=== PATIENT | female | born 1940 | race Caucasian/White ===

== ENCOUNTER 2024-03-27 13:49 | Inpatient (IN) | payer MEDICARE, SELFPAY ==
[2024-03-27] VITALS (9 sets, daily range): BP systolic 104–128; BP diastolic 60–71; PULSE 95–122; RESP 17–22; TEMP 36.2–39.8; O2SAT 93–98; BMI 19.4
--- NOTE | ~2024-03-27 | CT_ITS ---
EXAMINATION: CT HEAD WITHOUT CONTRAST CLINICAL INFORMATION: Dizziness. COMPARISON: None available. TECHNIQUE: Contiguous axial imaging was performed from the skull base to vertex without intravenous administration of contrast. This CT examination was performed using dose optimization techniques as appropriate, variously including the following: *Automated exposure control *Adjustment of mA and/or kV according to patient size (this includes techniques or standardized protocols for targeted exams where dose is matched to indication/reason for exam; i.e. extremities or head) *Use of iterative reconstruction technique DLP: 912 mGy-cm FINDINGS: There is a small extra-axial collection along the right frontal and right parietal lobes. The collection measures up to 7 mm in the frontal region and up to 7 mm in the parietal region. There is minimal mass effect on the subjacent brain. There is no midline shift. There is no evidence of acute/subacute cerebral or cerebellar infarction. There is mild microvascular ischemic change. There is mild global cerebral volume loss. The ventricles are normal in size. The calvarium is intact. The visualized paranasal sinuses and mastoid air cells are clear. CT/CT head/brain wo IV con IMPRESSION: There is a small extra-axial collection measuring up to 7 mm in thickness along the right frontal and parietal regions. The collection is isodense to brain parenchyma. There is minimal mass effect on the subjacent brain. There is no midline shift. Mild microvascular ischemic change. Mild global cerebral volume loss. This critical result was discussed with Dr Haynes at 3:42 PM on 03/27/2024 and it was ascertained that the content and urgency of the report was understood at the time of direct communication. Electronically signed by: Kulwant Carrillo DO 03/27/2024 03:43 PM KIN
--- NOTE | ~2024-03-27 | XR_ITS ---
EXAMINATION: XR CHEST CLINICAL INFORMATION: fever COMPARISON: None available. TECHNIQUE: Frontal view of the chest was obtained. FINDINGS: The heart is normal in size. There is calcific atherosclerotic disease of the aorta. There is prominence of the right hilum, which may represent vasculature, however, an underlying right hilar lesion cannot be excluded. The lungs are otherwise clear. There is no pleural effusion or pneumothorax. No acute osseous. XR/XR chest 1V IMPRESSION: There is prominence of the right hilum, which may represent vasculature, however, an underlying right hilar lesion cannot be excluded. The lungs are otherwise clear. Electronically signed by: Kulwant Carrillo DO 03/27/2024 04:02 PM EST
--- NOTE | 2024-03-27 14:04 | ECG_ITS ---
Test Reason : TACHY Blood Pressure : / mmHG Vent. Rate : 122 BPM Atrial Rate : 122 BPM P-R Int : 174 ms QRS Dur : 068 ms QT Int : 312 ms P-R-T Axes : 034 014 056 degrees QTc Int : 444 ms Sinus tachycardia Possible Left atrial enlargement Possible Inferior infarct , age undetermined Possible Anterior infarct , age undetermined Nonspecific ST and T wave abnormality Abnormal ECG No previous ECGs available Referred By: Generic ED Physician Electronically Signed By:SUZI PAUL
--- NOTE | 2024-03-27 14:21 | ED.DIZZY ---
HPI - Dizziness General Chief Complaint: Dizziness Stated Complaint: DIZZY AMS Time Seen by Provider: 03/27/24 14:07 Source: patient and EMS Mode of arrival: EMS Limitations: no limitations History of Present Illness ED Provider: DR. Haynes HPI Narrative: 83-year-old female rhythm by ambulance for evaluation dizziness (room spinning ) patient's symptoms started since early this morning, patient lives independently highly active dance couple times a week, patient's symptoms started since 09:00, no headache, no weakness, no numbness, no CP, no SOB, no cough, no abdominal pain, no dysuria, no subjective fever. Patient complaining of frequency urination and chills for the past week. In the emergency department patient found to be febrile 103, with normal neuro exam pain. Related Data Allergies Allergy/AdvReac Type Severity Reaction Status Date / Time No Known Allergies Allergy Verified 03/27/24 14:03 Review of Systems Review of Systems: all other systems are reviewed and are negative Constitutional: Reports as per HPI and Reports no additional constitutional complaints Eyes: Reports as per HPI and Reports no additional eye complaints Reports system reviewed and no additional complaints, except as documented Cardiovascular: Reports as per HPI and Reports no additional cardiovascular complaints Respiratory: Reports as per HPI and Reports no additional respiratory complaints Gastrointestinal: Reports as per HPI and Reports no additional gastrointestinal complaints Genitourinary: Reports no additional female genitourinary complaints Musculoskeletal: Reports no additional musculoskeletal complaints Skin/Breast: Reports system reviewed and no additional complaints, except as docu Psychiatric: Reports no additional psychiatric complaints Endocrine: Reports no additional endocrine complaints Hematologic/Lymphatic: Reports no additional hematologic/lymphatic complaints Allergic/Immunologic: Reports no additional allergic/immunologic complaints Reports system reviewed and no additional complaints, except as documented and Reports Abnormal speech present [facility] Social History Social History Smoked in Last 30 Days: No Use of substances other than those prescribed or required for medical reasons: No Advance Directives: No Advance Directives Information Provided: No Physical Exam Vital Signs: Vital Signs: Last Vital Signs Temp 98.4 F 03/27/24 15:35 Pulse 112 H 03/27/24 15:35 Resp 20 03/27/24 15:35 BP 128/66 03/27/24 15:35 Pulse Ox 97 03/27/24 15:35 O2 Del Method Room Air 03/27/24 15:35 BMI result Body Mass Index 19.4 Vital signs have been reviewed and appear to be correct. Blood pressure elevated. Heart rate Elevated. Respiratory rate Elevated. Temperature elevated. Oxygen saturation normal. Appearance: Alert. Oriented X3. No acute distress. Head: Normal external exam. Normocephalic. Atraumatic. No [place] signs noted. No raccoon eyes noted Eyes: PERRLA. EOMI. Conjunctiva and sclera normal. Eyelids normal. ENT: TM's Normal. Pharynx normal. Uvula midline. Moist mucous membranes. No trismus noted. No drooling noted. No muffled voice noted. Neck: Normal inspection. Neck supple. FROM. No adenopathy. Thyroid Normal. No meningeal signs. No neck mass noted. CVS: Normal heart rate and rhythm. Heart sound normal. No murmurs noted. Pulses normal throughout. Respiratory: No respiratory distress. Painless inspiration. Breath sounds normal. No wheezes/rales/rhonchi noted. Chest nontender. No accessory muscle usage noted or decreased air movement noted. Abdomen: Soft and nontender. Bowel sounds normal in all 4 quadrants. No distention noted. No organomegaly noted. No visible injury noted. Back: No CVA tenderness. Full range of motion noted. Skin: Skin warm and dry. Normal skin color. Normal skin turgor. No rashes/lesions/lacerations noted. Extremities: No lower extremity edema. Extremities exhibit normal range of motion. Extremities nontender. Neuro: Mental status: Normal attention, orientation, memory, and affect. Cranial nerves: Pupils are equal, round and reactive to light, EOMI, visual miller are fall, face is symmetric, facial sensations are normal. Motor examination normal muscle tone, strength to 4 extremities. DTR are +2, planter's are flexor. Sensory exam; normal coordination, no ataxia, gait stable. Cerebellar exam: [id number] and [id number] is normal. Extrapyramidal system: No tremors, no rigidity with normal facial expressions. Pronator drift not present. NIH Stroke Scale Time: 14:32 Level of Consciousness: Alert Level of Consciousness Questions: Answers both questions correctly Level of Consciousness Commands: Performs both tasks correctly Best Gaze: Normal Visual: No visual loss Facial Palsy: Normal Motor Arm (Right): No drift Motor Arm (Left): No drift Motor Leg (Right): No drift Motor Leg (Left): No drift Limb Ataxia: Absent Sensory: Normal Best Language: No aphasia Dysarthia: Normal Extinction and Inattention: No abnormality Score: 0 Course Reevaluation(s) Reevaluation #1: 83-year-old female came in for generalized weakness, frequency urination, found to be in sepsis and UTI. Patient received ceftriaxone, IV fluids with improvement of patient's dizziness after the fluids. CT head showing small subtle right subdural hematoma appear to be chronic in nature patient gave no history of fall or head injury.We can get inpatient neurology consult. Time: 15:46 Medications Administered Discontinued Medications Generic Name Dose Route Start Last Admin Trade Name Freq PRN Reason Stop Dose Admin Acetaminophen 650 mg 03/27/24 14:24 03/27/24 14:34 Acetaminophen 325 Mg Tablet PO 03/27/24 14:25 650 mg ONCE ONE Administration Ceftriaxone Sodium 1 gm 03/27/24 14:22 03/27/24 14:31 Ceftriaxone Sodium 1 Gm Vial IVPUSH 03/27/24 14:23 1 gm ONCE ONE Administration Sodium Chloride 1,395 mls @ 1,395 mls/hr 03/27/24 14:23 03/27/24 15:34 Ns 30 ml/kg infuse over 1 hr (1395 ml) 03/27/24 15:22 Infused IV Infusion .Q1H STA Medical Decision Making Differential Diagnosis Differential Diagnoses: The differential diagnosis associated with the presentation includes ( Sepsis, UTI, severe anemia, electrolyte derangement, dehydration, intracranial bleed.) Admission/Observation Consideration of admission/observation: Escalation of care including admission/observation considered Consult Healthcare Provider Management of the patient was discussed with: Hospitalist ( Dr. Artis) Lab Data MDM Lab Attestation statement: I reviewed the patient's lab results. 03/27/24 14:15 03/27/24 14:15 Labs: Lab Results 03/27/24 03/27/24 Range/Units 14:15 14:29 WBC 12.1 H (4.8-10.8) X10*3/uL RBC 3.89 L (4.20-5.50) X10*6/uL Hgb 13.0 (12.0-16.0) g/dl Hct 37.8 (37.0-47.0) % MCV 97.2 (80.0-98.0) fL MCH 33.4 H (27.0-33.0) pg MCHC 34.4 (31.0-35.0) g/dl RDW 13.8 (11.0-16.0) % Plt Count 234 (160-400) X10*3/uL MPV 9.7 (9.4-12.3) fL Immature Gran % (Auto) 0.4 (0.0-0.4) % Neut % (Auto) 91.5 H (45-73) % Lymph % (Auto) 3.6 L (20-40) % [place] % (Auto) 3.7 (2-11) % Eos % (Auto) 0.5 (0-4) % Baso % (Auto) 0.3 (0-2) % Lymph # (Auto) 0.4 L (1.2-4.9) X10*3/uL [place] # (Auto) 0.5 (0.1-1.2) X10*3/uL Eos # (Auto) 0.1 (0.0-0.4) X10*3/uL Baso # (Auto) 0.0 (0.0-0.2) X10*3/uL Abs Immat Gran (auto) 0.05 H (0.00-0.03) X10*3/uL Absolute Neuts (auto) 11.0 H (2.0-8.3) x10*3/uL Absolute Nucleated RBC 0.000 (0.0-0.012) X10*3/uL Nucleated RBC % (auto) 0.0 (0.0-0.2) /100WBC Smear Tech's Comments VERIFIED Hold Purple Top SEE NOTE Hold Blue Top SEE NOTE Lactic Acid 1.6 (0.5-2.0) mmol/L Urine Color Yellow Urine Appearance Turbid Urine pH 6.0 (5.0-9.0) Ur Specific [place] 1.015 (1.005-1.025) Urine Protein 30 (1+) H (Neg-Trace) mg/dL Urine Glucose (UA) Negative (Negative) mg/dL Urine Ketones 15 (Negative) mg/dL Urine Blood Moderate (2+) H (Negative) Urine Nitrite Positive H (Negative) Ur Leukocyte Esterase Large (3+) H (Negative) Urine RBC 3-5 H (0-2) /HPF Urine WBC >50 H (0-5) /HPF Ur Squamous Epith Cells 6-10 (0-2) /HPF Urine Bacteria 4+ (None Seen) Hyaline Casts 0-2 (0-2) /LPF Influenza Type A (PCR) NEGATIVE (Negative) Influenza Type B (PCR) NEGATIVE (Negative) RSV RNA Qual (PCR) NEGATIVE (Negative) SARS-CoV-2 RNA (RT-PCR) NEGATIVE (Negative) Independent Interpretation I performed an independent interpretation of an: Plain X-Ray ( Chest: No acute intrathoracic pathology.) and CT Scan ( head:There is a small extra-axial collection measuring up to 7 mm in thickness along the right frontal and parietal regions. The collection is isodense to brain parenchyma. There is minimal mass effect on the subjacent brain. There is no midline shift. ) Radiology Impression Discussion of test interpretation with radiology: I have reviewed the radiologist's reading. Discharge Plan Discharge Clinical Impression: Sepsis, Acute UTI, Subdural hematoma Patient Disposition: Admitted As Inpatient Print Language: Cymraes
[2024-03-27 14:23] LABS: Basophils Percent Auto 0.3 % (0-2); Eosinophils Absolute Auto 0.1 X10*3/uL (0.0-0.4); Eosinophils Percent Auto 0.5 % (0-4); Hematocrit 37.8 % (37.0-47.0); Imm Gran Abs Auto 0.05 X10*3/uL (0.00-0.03); Imm Gran Pct Auto 0.4 % (0.0-0.4); Lymphocytes Absolute Auto 0.4 X10*3/uL (1.2-4.9); Lymphocytes Percent Auto 3.6 % (20-40); MANUAL DIFF FLAG SCAN; Mean Corpuscular HGB Conc 34.4 g/dl (31.0-35.0); Mean Corpuscular Hemoglobin 33.4 pg (27.0-33.0); Mean Corpuscular Volume 97.2 fL (80.0-98.0); Mean Platelet Volume 9.7 fL (9.4-12.3); Monocytes Absolute Auto 0.5 X10*3/uL (0.1-1.2); Monocytes Percent Auto 3.7 % (2-11); Neutrophils Percent Auto 91.5 % (45-73); Platelet Count 234 X10*3/uL (160-400); Red Blood Count 3.89 X10*6/uL (4.20-5.50); Red Cell Distribution Width 13.8 % (11.0-16.0); SCAN SMEAR FLAG 1; White Blood Count 12.1 X10*3/uL (4.8-10.8)
[2024-03-27] MEDS: SODIUM CHLORIDE 1395 ML IV (14:30)
[2024-03-27] MEDS: cefTRIAXone sodium 1 GM VIAL IVPUSH (14:31)
[2024-03-27] MEDS: Acetaminophen 325 MG TABLET 650 MG PO (14:34)
[2024-03-27 14:38] LABS: Lactic Acid 1.6 mmol/L (0.5-2.0)
[2024-03-27 14:38] LABS: Appearance Urine Turbid; Color Urine Yellow; Glucose Urine UA Negative (Negative); Leukocyte Esterase Urine Large (3+) (Negative); Nitrite Urine Positive (Negative); Specific Gravity - Urine 1.015 (1.005-1.025); UMIC TRIGGER UACC YES; Urine Blood Moderate (2+) (Negative); Urine Ketones 15 mg/dL (Negative); Urine Protein 30 (1+) mg/dL (Neg-Trace)
--- NOTE | 2024-03-27 14:40 | PC.NURSE ---
Pt presents to ED via EMS from [facility]. Reports dizziness for past 2 days and increased confusion. EMS said the staff reported she is confused slightly at baseline but does not seem herself. Pt denies falls, cough, N/V/D. Alert and confused, breathing even and unlabored, skin hot and dry. Tachy and rectal temp 103.6. Provider notified.
[2024-03-27 14:44] LABS: SLIDE REVIEW VERIFIED
[2024-03-27 14:48] LABS: Bacteria Urine 4+ (None Seen); Hyaline Casts Urine 0-2 /LPF (0-2); UACC Culture Trigger YES; WBC Urine >50 /HPF (0-5)
[2024-03-27 15:02] LABS: Influenza A PCR NEGATIVE (Negative); Influenza B PCR NEGATIVE (Negative); Resp Syncy Virus RNA Qual PCR NEGATIVE (Negative); SARS COV2 PCR INHOUSE NEGATIVE (Negative)
--- NOTE | 2024-03-27 15:40 | P.HPHOSP_ITS ---
History of Present Illness Date of Service: 03/27/24 Chief Complaint: Altered mental status and fever 83-year-old female with no significant past medical history, presenting from an assisted living facility with altered mental status and fever. Emergency room workup revealed a urinary tract infection with sepsis. She is hemodynamically stable and has been started on IV ceftriaxone. Admission was deemed necessary due to sepsis. Review of Systems 2 Review of Systems: Reports feeling dizzy, though. No chest all other system are reviewed and are negative PMFSH Social History Household Members: Other Housing: Assisted Living Facility Patient Tobacco Use Status: Never used Tobacco Smoked in Last 30 Days: No Use of substances other than those prescribed or required for medical reasons: No Currently Displaying Signs/Symptoms of Drug Intoxication Withdrawal: No Have you been hit, kicked, punched, or otherwise hurt by someone within the past year? If so, by whom?: No Do you feel safe in your current relationship?: No Current Relationship Is there a partner from a previous relationship who is making you feel unsafe now?: No Are you made to feel afraid or neglected: No Advance Directives: No Advance Directives Information Provided: No Do you have a plan to hurt others: No Plan Recently lost weight without trying: No Eating poorly because of decreased appetite: No Nutrition Risks: No Nutritional Risk Patient : No : No Poor oral hygiene: No Meds Allergies Allergy/AdvReac Type Severity Reaction Status Date / Time No Known Allergies Allergy Verified 03/27/24 14:03 Home Medications ?Medication ?Instructions ?Recorded ?Confirmed ?Last Taken ?Type lorazepam 1 mg tablet 1 mg PO BEDTIME PRN anxiety/sleep 03/27/24 03/27/24 Unknown History Physical Exam 2 Vital Signs and Narrative: Vital Signs: Last Vital Signs Temp 98.4 F 03/27/24 15:35 Pulse 112 H 03/27/24 15:35 Resp 20 03/27/24 15:35 BP 128/66 03/27/24 15:35 Pulse Ox 97 03/27/24 15:35 O2 Del Method Room Air 03/27/24 15:35 BMI result Body Mass Index 19.4 Const: Other: General: Oriented to place and self but not to date., no acute distress Resp: CTA bilateral CVS: S1,S2,RRR GI: +BS, NT, no distention Skin: No rash Neuro: motor grossly intact Psych: Very pleasant affect, appropriate affect Results Labs 03/27/24 14:15 03/27/24 14:15 Labs: Laboratory Results - last 24 hr 03/27/24 03/27/24 14:15 14:29 MCV 97.2 MCH 33.4 H MCHC 34.4 RDW 13.8 Plt Count 234 MPV 9.7 Immature Gran % (Auto) 0.4 Neut % (Auto) 91.5 H Lymph % (Auto) 3.6 L [place] % (Auto) 3.7 Eos % (Auto) 0.5 Baso % (Auto) 0.3 Lymph # (Auto) 0.4 L [place] # (Auto) 0.5 Eos # (Auto) 0.1 Baso # (Auto) 0.0 Abs Immat Gran (auto) 0.05 H Absolute Neuts (auto) 11.0 H Absolute Nucleated RBC 0.000 Nucleated RBC % (auto) 0.0 Smear Tech's Comments VERIFIED Hold Purple Top SEE NOTE Hold Blue Top SEE NOTE Lactic Acid 1.6 Urine Color Yellow Urine Appearance Turbid Urine pH 6.0 Ur Specific [place] 1.015 Urine Protein 30 (1+) H Urine Glucose (UA) Negative Urine Ketones 15 Urine Blood Moderate (2+) H Urine Nitrite Positive H Ur Leukocyte Esterase Large (3+) H Urine RBC 3-5 H Urine WBC >50 H Ur Squamous Epith Cells 6-10 Urine Bacteria 4+ Hyaline Casts 0-2 Influenza Type A (PCR) NEGATIVE Influenza Type B (PCR) NEGATIVE RSV RNA Qual (PCR) NEGATIVE SARS-CoV-2 RNA (RT-PCR) NEGATIVE Assessment and Plan (1) UTI (urinary tract infection): Status: Acute (2) Sepsis: Status: Acute (3) Metabolic encephalopathy: Status: Acute Plan 83 F with cgnitive impairment from an assisted living facility here with fever, confusion and has sepsis d/t UTI anb related metabolic encephalopathy, 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
[2024-03-27] MEDS: Lactated Ringers 1,000 ML 100 ML IVCONT (16:05)
[2024-03-27 16:54] LABS: Alanine Aminotransferase 9 U/L (0-31); Albumin Level 3.7 g/dL (3.5-5.0); Alkaline Phosphatase 76 U/L (39-117); Anion Gap 16 (12-20); Aspartate Amino Transferase 25 U/L (5-31); Bilirubin Total 0.6 mg/dL (0.0-1.0); Blood Urea Nitrogen 10 mg/dL (9-16); Calcium 8.7 mg/dL (8.4-10.2); Carbon Dioxide 19 mmol/L (22-29); Chloride 105 mmol/L (96-108); Estimated Glomerular Filt Rate > 60; Glucose Random 148 mg/dL (60-115); Sodium 136 mmol/L (135-145); Total Protein 6.6 g/dL (6.5-8.0)
--- NOTE | 2024-03-27 16:55 | PHA.MEDREC ---
Addendum entered by Cindy Richter RPh 03/27/24 17:06: Med rec was reviewed. Original Note: Pharmacy Consult ? Medication Reconciliation Pharmacy has completed the medication reconciliation. Spoke with patient to confirm. She reports she takes lorazepam as needed to help go to sleep. She said she moved here from [place] recently and has not been able to find a prescriber to see her and fill it for her. She has been out of it for about 2 weeks. She has not been taking her vitamins recently. (A, B, C, D). I asked about the pain medication and mouth rinse that [facility] filled and she said she did not get anything from [facility].
[2024-03-27] MEDS: Melatonin 3 MG TABLET 6 MG PO (21:36)
[2024-03-28] MEDS: Lactated Ringers 1,000 ML 100 ML IVCONT (01:33)
[2024-03-28 03:12] VITALS: BP 138/82; PULSE 84; RESP 18; TEMP 36.1; O2SAT 99
--- NOTE | 2024-03-28 07:41 | P.PNIM_ITS ---
Subjective Subjective Date of Service: 03/28/24 Interval History: f/u sepsis, fever and uti fever resolved, less confused Physical Exam 2 Vital Signs: Vital Signs: Last Vital Signs Temp 97.0 F 03/28/24 03:12 Pulse 84 03/28/24 03:12 Resp 18 03/28/24 03:12 BP 138/82 03/28/24 03:12 Pulse Ox 99 03/28/24 03:12 O2 Del Method Room Air 03/28/24 03:12 BMI result Body Mass Index 19.4 Const: Other: General: oriented to place and self, no distress Resp: CTA bilateral CVS: S1,S2,RRR GI: +BS, NT, no distention Skin: No rash Neuro: motor grossly intact Psych: Very pleasant affect, appropriate affect Objective Data Active Medications Acetaminophen (Acetaminophen 325 Mg Tablet) 650 mg PO Q6H PRN PRN Reason: Pain, Mild (Pain Scale 1-3), fever or headache Calcium Carbonate (Calcium Carbonate 750 Mg Tab.Chew) 750 mg PO Q4H PRN PRN Reason: Heartburn Ceftriaxone Sodium (Ceftriaxone Sodium 1 Gm Vial) 1 gm IVPUSH Q24H [facility] Lactated Ringer's (Lr) 1,000 mls @ 100 mls/hr IVCONT .Q10H [facility] Last Admin: 03/28/24 01:33 Dose: 100 mls/hr Documented By: MARIANNE Lorazepam (Lorazepam 1 Mg Tablet) 1 mg PO BEDTIME PRN PRN Reason: anxiety/sleep Magnesium Hydroxide (Milk Of Magnesia 30 Ml Oral.Susp) 30 ml PO DAILY PRN PRN Reason: Constipation Melatonin (Melatonin 3 Mg Tablet) 6 mg PO BEDTIME PRN PRN Reason: Insomnia Last Admin: 03/27/24 21:36 Dose: 6 mg Documented By: MARIANNE Ondansetron HCl (Ondansetron Hcl 4 Mg/2 Ml Vial) 4 mg IVPUSH Q8H PRN PRN Reason: Nausea and Vomiting Polyethylene Glycol (Polyethylene Glycol 3350 17 Gm Powd.Pack) 17 gm PO DAILY PRN PRN Reason: Constipation Sodium Chloride (0.9 % Sodium Chloride Flush 3 Ml Syringe) 3 ml IVFLUSH QSHIFT [facility] Last Admin: 03/27/24 23:20 Dose: Not Given Documented By: MARIANNE Non-Admin Reason: IV Running Labs 03/27/24 14:15 03/27/24 14:15 Labs: Laboratory Results - last 24 hr 03/27/24 03/27/24 14:15 14:29 MCV 97.2 MCH 33.4 H MCHC 34.4 RDW 13.8 Plt Count 234 MPV 9.7 Immature Gran % (Auto) 0.4 Neut % (Auto) 91.5 H Lymph % (Auto) 3.6 L [place] % (Auto) 3.7 Eos % (Auto) 0.5 Baso % (Auto) 0.3 Lymph # (Auto) 0.4 L [place] # (Auto) 0.5 Eos # (Auto) 0.1 Baso # (Auto) 0.0 Abs Immat Gran (auto) 0.05 H Absolute Neuts (auto) 11.0 H Absolute Nucleated RBC 0.000 Nucleated RBC % (auto) 0.0 Smear Tech's Comments VERIFIED Hold Purple Top SEE NOTE Hold Blue Top SEE NOTE Anion Gap 16 Estim Creat Clear Calc 36.0 Estimated GFR > 60 Random Glucose 148 H Lactic Acid 1.6 Calcium 8.7 Total Bilirubin 0.6 AST 25 ALT 9 Alkaline Phosphatase 76 Total Protein 6.6 Albumin 3.7 Urine Color Yellow Urine Appearance Turbid Urine pH 6.0 Ur Specific [place] 1.015 Urine Protein 30 (1+) H Urine Glucose (UA) Negative Urine Ketones 15 Urine Blood Moderate (2+) H Urine Nitrite Positive H Ur Leukocyte Esterase Large (3+) H Urine RBC 3-5 H Urine WBC >50 H Ur Squamous Epith Cells 6-10 Urine Bacteria 4+ Hyaline Casts 0-2 Influenza Type A (PCR) NEGATIVE Influenza Type B (PCR) NEGATIVE RSV RNA Qual (PCR) NEGATIVE SARS-CoV-2 RNA (RT-PCR) NEGATIVE Assessment and Plan (1) Acute UTI: Status: Acute (2) Sepsis: Status: Acute (3) Metabolic encephalopathy: Status: Acute Plan 83 F with cgnitive impairment from an assisted living facility here with fever, confusion and has sepsis d/t UTI anb related metabolic encephalopathy, 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 Sepsis, UTI, and related metabolic encephalopathy -continue cftriaxone -follow unire and blood culture/sensitivity right frontal and parietal extra-axial collection, likely [place] [facility] [place] [facility], [place]if[place] unknown but no intervention indicated h/o anxiety--ativan PRN DVT--mechanical device in light of recent possible brain hematoma Quality Stroke Does the patient have a stroke diagnosis?: No VTE Prior VTE?: No VTE Risk Level:: Medical - moderate - high VTE Device Contraindication: N/A - Device Ordered VTE Drug Contraindication: Treatment Not Tolerated
[2024-03-28 07:57] VITALS: PULSE 76; RESP 16; TEMP 36.7; O2SAT 98
[2024-03-28 09:57] LABS: Hematocrit 34.9 % (37.0-47.0); Hemoglobin 11.6 g/dl (12.0-16.0); Mean Corpuscular HGB Conc 33.2 g/dl (31.0-35.0); Mean Corpuscular Hemoglobin 32.8 pg (27.0-33.0); Mean Corpuscular Volume 98.6 fL (80.0-98.0); Mean Platelet Volume 9.7 fL (9.4-12.3); Platelet Count 230 X10*3/uL (160-400); Red Blood Count 3.54 X10*6/uL (4.20-5.50); Red Cell Distribution Width 13.6 % (11.0-16.0); White Blood Count 6.7 X10*3/uL (4.8-10.8)
[2024-03-28 10:06] LABS: Anion Gap 9 (12-20); Blood Urea Nitrogen 6 mg/dL (9-16); Calcium 8.6 mg/dL (8.4-10.2); Carbon Dioxide 26 mmol/L (22-29); Chloride 108 mmol/L (96-108); Creatinine Clr Calc Pharmacy 47.6; Estimated Glomerular Filt Rate > 60; Glucose Random 114 mg/dL (60-115); Potassium 3.6 mmol/L (3.3-5.1); Sodium 139 mmol/L (135-145)
[2024-03-28 12:41] VITALS: BP 127/67; PULSE 75
[2024-03-28 12:42] VITALS: BP 120/66; BP 126/72; PULSE 79; PULSE 83
--- NOTE | 2024-03-28 13:00 | PC.NURSE ---
Patient c/o dizziness upon standing, stated she has been dizzy for few days mostly when standing and walking. Provider notified, orthostatic vitals ordered and completed. Results reported to the provider
--- NOTE | 2024-03-28 13:21 | MHC.CM.PN ---
LOCATOR AND CM MET WITH PT. PT LIVES ALONE AT [facility] PT HAS NO SERVICES OR DME, PT'S PCP IS DR CATHERINE LIZAMA PT'S HCP IS SON, GLYNN SILVA, PT WILL NEED TRANSPORT HOME PT HAS MEDICARE FOR INSURANCE, IMM DELIVERED DCP, HOME NO SERVICES.
[2024-03-28] MEDS: cefTRIAXone sodium 1 GM VIAL IVPUSH (14:42)
[2024-03-28 15:06] VITALS: BP 120/58; PULSE 74; RESP 18; TEMP 36.3; O2SAT 96
[2024-03-28 19:18] VITALS: BP 132/64; PULSE 84; RESP 20; TEMP 36.9; O2SAT 98
[2024-03-28] MEDS: 0.9 % Sodium Chloride Flush 3 ML SYRINGE IVFLUSH (19:30)
[2024-03-28] MEDS: LORazepam 1 MG TABLET PO (20:11)
[2024-03-29] VITALS (7 sets, daily range): BP systolic 109–139; BP diastolic 58–84; PULSE 70–84; RESP 16–18; TEMP 36.3–36.6; O2SAT 96–97
[2024-03-29] MEDS: 0.9 % Sodium Chloride Flush 3 ML SYRINGE IVFLUSH ×3 (08:37→19:23)
[2024-03-29] MEDS: cefTRIAXone sodium 1 GM VIAL IVPUSH (14:20)
--- NOTE | 2024-03-29 17:20 | HO.PM.IMPN ---
Subjective Subjective Date of Service: 03/29/24 Interval History: uti Review of Systems Feeling slowly better, able to walk some distance today Physical Exam Vital Signs: Vital Signs: Last Vital Signs Temp 97.6 F 03/29/24 15:06 Pulse 78 03/29/24 15:06 Resp 18 03/29/24 15:06 BP 110/62 03/29/24 15:06 Pulse Ox 97 03/29/24 15:06 O2 Del Method Room Air 03/29/24 15:06 BMI result Body Mass Index 19.4 General: oriented to place and self, no distress Resp: CTA bilateral CVS: S1,S2,RRR GI: +BS, NT, no distention Skin: No rash Neuro: motor grossly intact Psych: Very pleasant affect, appropriate affect Objective Data Active Medications Acetaminophen (Acetaminophen 325 Mg Tablet) 650 mg PO Q6H PRN PRN Reason: Pain, Mild (Pain Scale 1-3), fever or headache Calcium Carbonate (Calcium Carbonate 750 Mg Tab.Chew) 750 mg PO Q4H PRN PRN Reason: Heartburn Ceftriaxone Sodium (Ceftriaxone Sodium 1 Gm Vial) 1 gm IVPUSH Q24H [facility] Last Admin: 03/29/24 14:20 Dose: 1 gm Documented By: SNEHA Lorazepam (Lorazepam 1 Mg Tablet) 1 mg PO BEDTIME PRN PRN Reason: anxiety/sleep Last Admin: 03/28/24 20:11 Dose: 1 mg Documented By: FLOYD Magnesium Hydroxide (Milk Of Magnesia 30 Ml Oral.Susp) 30 ml PO DAILY PRN PRN Reason: Constipation Melatonin (Melatonin 3 Mg Tablet) 6 mg PO BEDTIME PRN PRN Reason: Insomnia Last Admin: 03/27/24 21:36 Dose: 6 mg Documented By: MARIANNE Ondansetron HCl (Ondansetron Hcl 4 Mg/2 Ml Vial) 4 mg IVPUSH Q8H PRN PRN Reason: Nausea and Vomiting Polyethylene Glycol (Polyethylene Glycol 3350 17 Gm Powd.Pack) 17 gm PO DAILY PRN PRN Reason: Constipation Sodium Chloride (0.9 % Sodium Chloride Flush 3 Ml Syringe) 3 ml IVFLUSH QSHIFT [facility] Last Admin: 03/29/24 15:16 Dose: 3 ml Documented By: SNEHA Labs 03/28/24 09:16 03/28/24 09:16 Microbiology Microbiology Results: Microbiology 03/27/24 14:15 Blood Culture - Preliminary Blood - Venous No growth after 48 hours. 03/27/24 14:15 Blood Culture - Preliminary Blood - Venous No growth after 48 hours. 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 d/w neurology Dr Newsome -no acute intervention , check ct head in 1 month. h/o anxiety--ativan PRN DVT--mechanical device in light of recent possible brain hematoma Quality Stroke Does the patient have a stroke diagnosis?: No VTE Prior VTE?: No VTE Risk Level:: Medical - moderate - high VTE Device Contraindication: N/A - Device Ordered VTE Drug Contraindication: Treatment Not Tolerated
[2024-03-29] MEDS: LORazepam 1 MG TABLET PO (20:06)
[2024-03-30 03:49] VITALS: BP 114/60; PULSE 69; RESP 16; TEMP 36.4; O2SAT 99
[2024-03-30 08:00] VITALS: BP 136/67; PULSE 72; RESP 16; TEMP 36.7; O2SAT 99
[2024-03-30] MEDS: 0.9 % Sodium Chloride Flush 3 ML SYRINGE IVFLUSH (08:44)
[2024-03-30] MEDS: cefuroxime axetiL 250 MG TABLET PO (08:44)
--- NOTE | 2024-03-30 10:43 | P.DS_ITS ---
DS: Providers Provider Date of Service: 03/30/24 Date of admission: 03/27/24 15:51 Date of discharge: 03/30/24 Primary care physician: Sonja Cheek MD Attending physician on discharge: Celio Anders Discharging clinician: Celio Anders DS: Diagnosis Discharge Diagnosis (1) Acute UTI: Status: Acute (2) Sepsis: Status: Acute (3) Metabolic encephalopathy: Status: Acute DS: Summary Hospital Course Hospital Course: HPI:83 F with cognitive impairment from an assisted living facility here with fever, confusion and has sepsis d/t UTI anb related metabolic encephalopathy, 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. hospital course: 83 F with cgnitive impairment from an assisted living facility here with fever, confusion and has sepsis d/t UTI anb related metabolic encephalopathy, 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: Patient was started on IV antibiotics, urine and blood cultures sent, lactic acid normal: With above management patient mental status improved to baseline, no no fevers, leukocytosis resolved, blood culture negative at 48 hours, patient is walking much better and even doing balle dancing. CT head showed small left sided subdural hematoma-discussed with Dr. Newsome: May need repeat CT head in 3-4 weeks time for follow-up. No acute intervention at present, Further management outpatient. Patient will be going back to assisted living facility . plan: complete ceftin 250 mg po bid for [address] head showed small left sided subdural hematoma-discussed with Dr. Newsome: May need repeat CT head in 3-4 weeks time for follow-up. No acute intervention at present, Further management outpatient with pcp and consider outpatient neurology follow up. Above management discussed with the patient in detail length she understand and in agreement with the above plan, time spent 40 minute. Time Attestation Total time managing care of this patient today: 40 mintues. Discharge Coordination Time (in mins): 40 min Quality: Safe Use of Opioids Does Pt have an Active Cancer Diagnosis on the Problem List?: No Quality: Stroke Does the patient have a stroke diagnosis?: No Physical Exam Vital Signs: Vital Signs: Last Vital Signs Temp 98.0 F 03/30/24 08:00 Pulse 72 03/30/24 08:00 Resp 16 03/30/24 08:00 BP 136/67 03/30/24 08:00 Pulse Ox 99 03/30/24 08:00 O2 Del Method Room Air 03/30/24 08:00 BMI result Body Mass Index 19.4 Appearance: Alert.? Oriented X3.? not in distress.? Eyes: Pupils equal, round and reactive to light.? Sclera nonicteric.? ENT: Pharynx normal.? Moist mucous membranes. cvs: rrr, [id number] . res: clear to auscultation ,no rhonchii or wheezing abd: no rebound or guarding ,nt, bs present. ext pulses present , no cyanosis . neuro: cn2-12 intact,axo3 , nonfocal, walking around fine. DS: Data Data Completed and Pending Labs on day of discharge: Preliminary micro results at discharge 03/27/24 14:15 Blood Culture - Preliminary Blood - Venous No growth after 48 hours. 03/27/24 14:15 Blood Culture - Preliminary Blood - Venous No growth after 48 hours. Imaging Chest x-ray: Radiologist's impression: ITS Impressions Head CT 03/27/24 14:19 IMPRESSION: There is a small extra-axial collection measuring up to 7 mm in thickness along the right frontal and parietal regions. The collection is isodense to brain parenchyma. There is minimal mass effect on the subjacent brain. There is no midline shift. Mild microvascular ischemic change. Mild global cerebral volume loss. This critical result was discussed with Dr Haynes at 3:42 PM on 03/27/2024 and it was ascertained that the content and urgency of the report was understood at the time of direct communication. Electronically signed by: Kulwant Carrillo DO 03/27/2024 03:43 PM EST RP Chest X-Ray 03/27/24 15:00 IMPRESSION: There is prominence of the right hilum, which may represent vasculature, however, an underlying right hilar lesion cannot be excluded. The lungs are otherwise clear. Electronically signed by: Kulwant Carrillo DO 03/27/2024 04:02 PM EST RP Discharge Plan Discharge Anticipated Discharge Date/Time: 03/30/24 10:29 Patient Disposition: Home, Self-Care Discharge Diagnosis: uti/sepsis Referrals: Sonja Cheek MD [Primary Care Provider] - 1 Week Discharge Medications: New cefuroxime axetil 250 mg Tablet 250 mg PO Q12H Qty: 14 0RF Continued lorazepam 1 mg tablet 1 mg PO BEDTIME PRN (Reason: anxiety/sleep) Discharge Orders: Discharge Order (Routine); Ordered 03/30/24 Ordered By: Celio Anders Diet: Advance to usual diet Activity on Discharge: As tolerated Stand Alone Forms: Patient Portal Discharge page Print Language: Ukrainian Care Plan Goals: 83 F with cgnitive impairment from an assisted living facility here with fever, confusion and has sepsis d/t UTI anb related metabolic encephalopathy, 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: Patient was started on IV antibiotics, urine and blood cultures sent, lactic acid normal: With above management patient mental status improved to baseline, no no fevers, leukocytosi s resolved, blood culture negative at 48 hours, patient is walking much better and even doing balle dancing. CT head showed small hematoma-discussed with Dr. Newsome: May need repeat CT head in 3-4 weeks time for follow-up. No acute intervention at present, Further management outpatient. Patient will be going back to assisted living facility . Health Concerns: As above. Plan of Treatment: As above. Assessment: As above.
--- NOTE | 2024-03-30 11:17 | MHC.CM.PN ---
DP: PT HAS BEEN MEDICALLY CLEARED FOR DC HOME, NO SERVICES. C SHUTTLE BOOKED FOR 1 PM. RN NOTIFIED.
== END 2024-03-30 13:15 | disposition home or self-care (01) | DRG 871 ==
LOC: HO.ED 15:53 → HO.EDOVER 15:56 → HO.S3 16:09
PROVIDERS: Admitting Provider Internal Medicine; Emergency Provider Emergency Medicine; PCP Internal Medicine; Visit Provider Internal Medicine
DX: A41.9 Sepsis, unspecified organism (principal); G93.41 Metabolic encephalopathy; N39.0 Urinary tract infection, site not specified; Z20.822 Contact with and (suspected) exposure to COVID-19; Z79.899 Other long term (current) drug therapy
CPT/HCPCS: 0241U; 36415; 70450; 71045; 80048; 80053; 81001; 83605; 85025; 85027; 87040; 87086; 87088; 87186; 93005; 97161; 99285; J0696; J7120

== ENCOUNTER → 2024-03-27 14:04 | Outpatient (BNV) | payer MEDICARE, SELFPAY | PROVIDERS: Admitting Provider Internal Medicine; Emergency Provider Emergency Medicine; PCP Internal Medicine; Visit Provider Internal Medicine | DX: R94.31 Abnormal electrocardiogram [ECG] [EKG] (principal) | CPT/HCPCS: 93010 ==

== ENCOUNTER → 2024-03-27 15:51 | Outpatient (BNV) | payer MEDICARE, SELFPAY | PROVIDERS: Admitting Provider Internal Medicine; Emergency Provider Emergency Medicine; PCP Internal Medicine; Visit Provider Internal Medicine | DX: N39.0 Urinary tract infection, site not specified (principal); A41.9 Sepsis, unspecified organism; G93.41 Metabolic encephalopathy | CPT/HCPCS: 99223; 99231; 99232; 99239 ==

== ENCOUNTER 2024-10-17 10:00 | Outpatient (RCR) | payer MEDICARE, SELFPAY ==
[2024-09-21 10:06] VITALS: BP 135/90
== END 2024-12-08 09:44 | disposition home or self-care (01) ==
LOC: HO.PT 10:00
DX: H81.10 Benign paroxysmal vertigo, unspecified ear (principal)
CPT/HCPCS: 95992; 97112; 97161; 97530; 97535